=== PATIENT | male | born 1995 | race Asian ===

== ENCOUNTER 2024-06-17 06:13 | Day surgery (SDC) | payer BC, SELFPAY ==
[2024-06-17] VITALS (9 sets, daily range): BP systolic 111–141; BP diastolic 59–92; BMI 28.5
[2024-06-17] MEDS: DILAUDID 0.25 MG IV ×2 (09:03→09:35)
[2024-06-17] MEDS: TYLENOL 650 MG PO (09:56)
[2024-06-17] MEDS: ROXICODONE 5 MG PO (10:21)
== END 2024-06-17 11:40 | disposition home or self-care (01) ==
LOC: SDS 06:13
PROVIDERS: ATTENDING PHYSICIAN Specialist
DX: F64.0 Transsexualism (principal); Z78.9 Other specified health status
CPT/HCPCS: 54520